=== PATIENT | female | born 1960 | race African-American/Black ===

== ENCOUNTER → 2017-01-21 | Outpatient (CLI) | payer OTHER ==
--- NOTE | 2017-01-21 19:31 | CONS ---
DATE OF CONSULTATION: 01/21/2017 This is a 56-year-old lady who has been evaluated in the sleep center for possible obstructive sleep apnea-hypopnea syndrome. HISTORY OF PRESENT ILLNESS/SLEEP-WAKE EVALUATION: Patient's usual sleep schedule is from around 8 or 9 p.m. until around 6:30 a.m. Sometimes she has problems falling asleep. She has a TV set in the bedroom. She sleeps usually on the side position. She snores, has episodes of stopped breathing during sleep. She wakes up from sleep up to 4 times. [place] Sleepiness Scale is 4. Past medical history is positive for: 1. End-stage kidney disease with history of being on dialysis and peritoneal dialysis and kidney transplant in March 2011. 2. Status post complication of peritoneal dialysis with infection in the belly. 3. Diabetes mellitus. 4. Hypertension. 5. Polyarthritis. 6. Anxiety. MEDICATIONS: 1. Cyclosporin. 2. ( ) 3. Aspirin. 4. Metoprolol. 5. Prednisone. 6. Metformin. 7. Vitamin D. 8. Xanax. SOCIAL HISTORY: Positive for smoking on and off for about 15 years; quit about 5 years ago. Alcohol consumption: none. REVIEW OF SYSTEMS: Multiple awakenings from sleep, snoring. No fevers. No double vision. No recent chest pain. No shortness of breath. No abdominal pain. No bleeding episodes. No blood in urine. No seizure episodes. FAMILY HISTORY: Hypertension, hyperlipidemia, arthritis, asthma, lung problems, sleep apnea, snoring, diabetes. PHYSICAL EXAMINATION: GENERAL: A pleasant 56-year-old -[place] lady without distress. VITAL SIGNS: BP 113/68, HR 74, RR 16. Height 5 feet 6 inches. Weight 265. BMI 42.6. Neck 15 inches in circumference. Temperature 98.0. HEENT: PERRLA, EOMI. Evaluation of oropharynx showed tongue protrudes midline; extremely low position of soft palate. NECK: Supple. No JVD. Thyroid is not palpable. LUNGS: Clear to percussion and to auscultation. Good air exchange. No wheezing or rhonchi. HEART: S1, S2 regular. No murmurs, gallops or rubs. ABDOMEN: Obese. Scars on the belly after the surgeries. EXTREMITIES: No clubbing or cyanosis. BIOSTATISTICIAN: Patient walks with a walker. IMPRESSION: 1. Snoring, episodes of stopped breathing during sleep, extremely low position of soft palate, multiple awakenings from sleep, up to 4 times; obstructive sleep apnea-hypopnea syndrome. 2. Obesity; body mass index of 42.6. 3. Arthritis, problem with right knee. 4. Hypertension. 5. Diabetes mellitus. 6. History of end-stage renal disease, status post treatment with dialysis and peritoneal dialysis, status post kidney transplant in 2010. 7. Anxiety. 8. Polyarthritis. PLAN: 1. Polysomnography for evaluation of patient's breathing during sleep. 2. CPAP/BiPAP titration if sleep study confirms obstructive sleep apnea-hypopnea syndrome. 3. Preferable position during sleep on the side. 4. No driving if patient feels any sleepiness. Patient is aware of civil and criminal liability for unsafe driving. 5. I will see patient for follow-up visit to explain results of the testing and following plan. Thank you very much for referring this patient for consultation. Sincerely, Lito Frias MD, PhD, FAASM. Diplomat of [place] [employer], Sleep Medicine Board by [place] [employer], [place] [employer]
== END ==
LOC: SLEEP 14:43
PROVIDERS: ATTEND Internal Medicine
DX: G47.33 Obstructive sleep apnea (adult) (pediatric) (principal); E66.9 Obesity, unspecified; M17.11 Unilateral primary osteoarthritis, right knee; E11.9 Type 2 diabetes mellitus without complications; F41.9 Anxiety disorder, unspecified; I10 Essential (primary) hypertension; Z68.41 Body mass index [BMI] 40.0-44.9, adult; Z79.82 Long term (current) use of aspirin; Z79.51 Long term (current) use of inhaled steroids; Z79.899 Other long term (current) drug therapy; Z87.891 Personal history of nicotine dependence
CPT/HCPCS: 99211

== ENCOUNTER → 2017-06-10 | Outpatient (CLI) | payer OTHER ==
--- NOTE | 2017-06-10 13:57 | PN ---
DATE OF SERVICE: 06/10/2017 A 57-year-old lady who has been followed in the Sleep Center for treatment of obstructive sleep apnea, hypopnea syndrome. I discussed the results of diagnostic sleep study and CPAP titration starting with the patient. The patient was started on treatment with CPAP about 2 months ago. Patient feels better in the morning when she is able to use her CPAP equipment at night , but she does not feel comfortable with the nasal mask which she has now. According to the patient, the mask which she used during the sleep test was different; it was smaller. I checked her CPAP unit and CPAP pressure is 8 cm of water around 45 minutes, usage is 8 out of 30 nights and more than 4 hours 5 out of 30 nights. Leak is borderline at 22 liters per minute. Apnea-hypopnea index only 0.2 which is totally normal. [place] sleepiness scale today is 8. MEDICATIONS: Metoprolol, prednisone, metformin, vitamin D, Xanax. During physical exam, the patient is in no distress. VITAL SIGNS: BP 119/76, HR 64, RR 16, weight 261, temp 98.2, oxygen saturation on room air 95%. HEENT: PERRLA, EOMI. Evaluation of oropharynx showed extremely low position of soft palate. NECK: Supple. No JVD. Thyroid is not palpable. LUNGS: clear to percussion and to auscultation. Good air exchange. No wheezing or rhonchi. HEART: S1, S2 regular. No murmurs, gallops or rubs. ABDOMEN: Obese. Soft and nontender. Bowel sounds are present. No organomegaly appreciated. EXTREMITIES: No cyanosis or clubbing. AEROPHYSICS ENGINEER: Awake, alert and oriented x3. Cranial nerves II through VII intact. There is no fasciculation or atrophy noted. No focal deficits observed. IMPRESSION: 1. Obstructive sleep apnea-hypopnea syndrome. Patient has difficulties to use CPAP equipment because of uncomfortable mask. The patient felt better after usage of CPAP on the following day. 2. Obesity. 3. Arthritis. 4. Hypertension. 5. Diabetes mellitus. 6. History of endstage renal disease, status post kidney transplant in 2010. 7. History of anxiety. PLAN: 1. We will try to fit the patient with different mask and I will write prescription to get different style of the mask. 2. Continue to use CPAP equipment every night for the whole night. Patient benefiting from treatment. 3. Losing weight. 4. Sleep hygiene with regular time in bed for at least 8 hours. 5. No driving if feeling any sleepiness. Thank you very much for allowing me to participate in the management of your patient. Sincerely, Vero Frias MD, PhD, FAASM Diplomat of [place] [employer], Sleep Medicine Board by [place] [employer] [place] [employer] [facility] [place] [facility]
== END ==
LOC: SLEEP 10:50
PROVIDERS: ATTEND Internal Medicine
DX: G47.33 Obstructive sleep apnea (adult) (pediatric) (principal); E66.9 Obesity, unspecified; I10 Essential (primary) hypertension; M19.90 Unspecified osteoarthritis, unspecified site; F41.9 Anxiety disorder, unspecified; Z79.899 Other long term (current) drug therapy

== ENCOUNTER → 2018-12-09 | Outpatient (CLI) | payer OTHER ==
[2018-12-09 08:56] LABS: HCT 45.6 % (34.0-46.0); HGB 13.2 gm/dL (11.4-16.0); Hypochromasia Marked; MCH 25.5 pg (25.0-35.0); MCHC 28.8 g/dL (31.0-37.0); MCV 88.5 fL (80.0-100.0); Mean Platelet Volume 7.4; Platelet Count 280 k/uL (150-450); RBC 5.16 m/uL (3.80-5.40); RDW 13.8 % (11.5-15.5); WBC 6.8 k/uL (3.8-10.6)
[2018-12-09 09:16] LABS: Appearance,Urine Clear (Clear); Bacteria,Urine Occasional /hpf; Bilirubin,Urine Negative (Negative); Blood,Urine Trace (Negative); Color,Urine Yellow; Glucose,Urine (UA) Negative (Negative); Ketones,Urine Negative (Negative); Leukocyte Esterase,Urine Trace (Negative); Mucus,Urine Rare /hpf; Nitrite,Urine Negative (Negative); PH, Urine 5.5 (5.0-8.0); Protein,Urine Negative (Negative); RBC,Urine 1 /hpf (0-5); Squamous Epithelial Cell,Urine 3 /hpf (0-4); Urobilinogen,Urine <2.0 mg/dL (<2.0); WBC,Urine 1 /hpf (0-5)
[2018-12-09 16:53] LABS: Albumin/Globulin Ratio 1.54 (1.60-3.17); Anion Gap 9.3 mmol/L (4.00-12.00); Calcium 9.6 mg/dL (8.7-10.3); Carbon Dioxide 25.7 mmol/L (21.6-31.8); Globulin 2.6 g/dL (1.6-3.3); Phosphorus 2.8 mg/dL (2.4-5.1); Potassium 4.4 mmol/L (3.5-5.5); Total Bilirubin 0.5 mg/dL (0.3-1.2); Total Protein 6.6 g/dL (6.2-8.2)
== END | disposition home or self-care (01) ==
LOC: LABWHC1 07:49
PROVIDERS: ATTEND Internal Medicine Nephrology
DX: D64.9 Anemia, unspecified (principal); N39.0 Urinary tract infection, site not specified; E83.39 Other disorders of phosphorus metabolism
CPT/HCPCS: 36415; 80053; 81001; 84100; 85027

== ENCOUNTER → 2019-02-14 | Outpatient (CLI) | payer OTHER ==
--- NOTE | 2019-02-14 16:12 | US ---
EXAMINATION TYPE: US kidneys/renal and bladder DATE OF EXAM: 02/14/2019 COMPARISON: NONE CLINICAL HISTORY: Z24.0 History of kidney transplant. Kidney transplant 2011 - RLQ EXAM MEASUREMENTS: [place] Right Kidney: unable to visualize [place] Left Kidney: ?? 7.8 x 3.2 x 3.8 cm [place] Right Kidney: unable to visualize [place] Left Kidney: possible left kidney visualized, limited evaluation due to overlying bowel conten t Bladder: appears wnl Bilateral Jets seen: no RLQ Transplanted Kidney: 10.5 x 3.9 x 5.2cm Urinary bladder is sonolucent. Posterior wall is normal. IMPRESSION: 1. Right lower quadrant transplant kidney appears unremarkable. Color flow sonography is present. No hydronephrosis is present.
== END ==
LOC: RADUSWWP 14:59
PROVIDERS: ATTEND Family Medicine
DX: Z48.22 Encounter for aftercare following kidney transplant (principal); Z94.0 Kidney transplant status
CPT/HCPCS: 76770

== ENCOUNTER → 2019-03-06 | Outpatient (CLI) | payer OTHER ==
--- NOTE | 2019-03-07 13:33 | MM ---
Reason for exam: screening (asymptomatic). Last mammogram was performed 1 year ago. History: Patient is postmenopausal and had first child at age 41. Physical Findings: A clinical breast exam by your physician is recommended on an annual basis and results should be correlated with mammographic findings. MG 3D Screening Mammo W/Cad Bilateral CC and MLO view(s) were taken. Prior study comparison: March 04, 2018, mammogram. March 04, 2017, mammogram. There are scattered fibroglandular densities. Finding: There is a typically benign new 3 mm equal density (isodense), round mass located 9 cm from the nipple. No significant changes in finding since March 04, 2018 and March 04, 2017. ASSESSMENT: Probably benign, BI-RAD 3 RECOMMENDATION: Follow-up diagnostic mammogram of the right breast in 6 months.
== END | disposition home or self-care (01) ==
LOC: RADMAMWWP 08:06
PROVIDERS: ATTEND Family Medicine
DX: Z12.31 Encounter for screening mammogram for malignant neoplasm of breast (principal)
CPT/HCPCS: 77063; 77067

== ENCOUNTER → 2019-03-24 | Outpatient (CLI) | payer OTHER | END | disposition home or self-care (01) | LOC: LABWHC1 07:45 | PROVIDERS: ATTEND Internal Medicine Nephrology | DX: Z94.0 Kidney transplant status (principal) | CPT/HCPCS: 36415; 80158 ==

== ENCOUNTER → 2019-08-14 | Outpatient (CLI) | payer OTHER ==
[2019-08-14 07:25] LABS: Basophils # (A) 0.1 k/uL (0-0.2); Basophils % (A) 1 %; Eosinophils # (A) 0.3 k/uL (0-0.7); Eosinophils % (A) 4 %; HCT 47.4 % (34.0-46.0); HGB 13.5 gm/dL (11.4-16.0); Hypochromasia Marked; Lymphocytes # (A) 1.9 k/uL (1.0-4.8); Lymphocytes % (A) 27 %; MCH 25.9 pg (25.0-35.0); MCHC 28.6 g/dL (31.0-37.0); MCV 90.8 fL (80.0-100.0); Mean Platelet Volume 7.1; Monocytes # (A) 0.4 k/uL (0-1.0); Monocytes % (A) 6 %; Neutrophils # (A) 4.3 k/uL (1.3-7.7); Neutrophils % (A) 61 %; Platelet Count 276 k/uL (150-450); RBC 5.22 m/uL (3.80-5.40); RDW 13.4 % (11.5-15.5); WBC 7.1 k/uL (3.8-10.6)
[2019-08-14 07:49] LABS: Appearance,Urine Cloudy (Clear); Bacteria,Urine Rare /hpf; Bilirubin,Urine Negative (Negative); Blood,Urine Negative (Negative); Color,Urine Yellow; Glucose,Urine (UA) Negative (Negative); Ketones,Urine Negative (Negative); Leukocyte Esterase,Urine Trace (Negative); Mucus,Urine Rare /hpf; Nitrite,Urine Negative (Negative); PH, Urine 5.5 (5.0-8.0); Protein,Urine Negative (Negative); RBC,Urine 2 /hpf (0-5); Specific Gravity,Urine 1.024 (1.001-1.035); Squamous Epithelial Cell,Urine 3 /hpf (0-4); Urobilinogen,Urine <2.0 mg/dL (<2.0); WBC,Urine 2 /hpf (0-5)
[2019-08-14 11:57] LABS: Iron Saturation 22.41 (12.00-45.00)
[2019-08-14 11:59] LABS: African American GFR (CKD) 47.9 (60.0-200.0); Albumin 4.2 g/dL (3.80-4.90); Anion Gap 11.4 mmol/L (4.00-12.00); BUN/Creat Ratio 28.57 Ratio (12.00-20.00); Calcium 9.7 mg/dL (8.7-10.3); Carbon Dioxide 27.6 mmol/L (21.6-31.8); Magnesium 1.7 mg/dL (1.5-2.4); Potassium 4.7 mmol/L (3.5-5.5); Uric Acid 8.4 mg/dL (2.9-7.7)
[2019-08-14 12:05] LABS: Vitamin D 25 Hydroxy 63.4 ng/mL (30.0-100.0)
[2019-08-14 12:07] LABS: Ferritin 172.7 ng/mL (10.0-291.0)
[2019-08-14 12:25] LABS: Creatinine,Urine Random 147.4 mg/dL; Total Protein,Urine Random 13.9 mg/dL (0.0-13.5)
== END | disposition home or self-care (01) ==
LOC: LABWHC1 06:41
PROVIDERS: ATTEND Internal Medicine Nephrology
DX: N39.0 Urinary tract infection, site not specified (principal); N25.81 Secondary hyperparathyroidism of renal origin; M10.9 Gout, unspecified; E55.9 Vitamin D deficiency, unspecified; D64.9 Anemia, unspecified; L70.8 Other acne; Z94.0 Kidney transplant status
CPT/HCPCS: 36415; 80048; 80158; 81001; 82040; 82306; 82570; 82728; 83540; 83550; 83735; 83970; 84100; 84156; 84550; 85025

== ENCOUNTER → 2019-09-13 | Outpatient (CLI) | payer OTHER ==
--- NOTE | 2019-09-13 07:53 | MM ---
Reason for exam: clinical finding. Last mammogram was performed 6 months ago. History: Patient is postmenopausal and had first child at age 41. Physical Findings: Nurse did not find any significant physical abnormalities on exam. MG 3D Diag Mammo W/Cad RT CC and MLO view(s) were taken of the right breast. Prior study comparison: March 06, 2019, bilateral MG 3d screening mammo w/cad. March 04, 2018, mammogram. There are scattered fibroglandular densities. There is a stable 2mm oval circumscribed lower outer quadrant anterior depth mas on the right back to 2018. No new suspicious abnormality. Benign appearing calcifications in the right breast. These results were verbally communicated with the patient and result sheet given to the patient on 09/13/19. ASSESSMENT: Probably benign, BI-RAD 3 RECOMMENDATION: Follow-up diagnostic mammogram of both breasts in 6 months.
== END | disposition home or self-care (01) ==
LOC: RADMAMWWP 06:51
PROVIDERS: ATTEND Family Medicine
DX: N63.10 Unspecified lump in the right breast, unspecified quadrant (principal)
CPT/HCPCS: 77065; G0279; 77061

== ENCOUNTER → 2019-09-19 | Outpatient (CLI) | payer OTHER ==
[2019-09-19 07:45] LABS: Basophils # (A) 0.1 k/uL (0-0.2); Basophils % (A) 1 %; Eosinophils # (A) 0.3 k/uL (0-0.7); Eosinophils % (A) 4 %; HCT 47.1 % (34.0-46.0); HGB 14.2 gm/dL (11.4-16.0); Hypochromasia Marked; Lymphocytes # (A) 2.2 k/uL (1.0-4.8); Lymphocytes % (A) 31 %; MCHC 30.2 g/dL (31.0-37.0); MCV 89.4 fL (80.0-100.0); Mean Platelet Volume 6.7; Monocytes # (A) 0.4 k/uL (0-1.0); Monocytes % (A) 6 %; Neutrophils % (A) 57 %; Platelet Count 271 k/uL (150-450); RBC 5.27 m/uL (3.80-5.40); RDW 13.4 % (11.5-15.5); WBC 7.1 k/uL (3.8-10.6)
[2019-09-19 07:52] LABS: Appearance,Urine Cloudy (Clear); Bacteria,Urine Few /hpf; Bilirubin,Urine Negative (Negative); Blood,Urine Trace (Negative); Color,Urine Yellow; Glucose,Urine (UA) Negative (Negative); Ketones,Urine Negative (Negative); Leukocyte Esterase,Urine Small (Negative); Mucus,Urine Occasional /hpf; Nitrite,Urine Negative (Negative); PH, Urine 5.5 (5.0-8.0); Protein,Urine Trace (Negative); RBC,Urine 2 /hpf (0-5); Specific Gravity,Urine 1.027 (1.001-1.035); Squamous Epithelial Cell,Urine 24 /hpf (0-4); Urobilinogen,Urine <2.0 mg/dL (<2.0); WBC,Urine 7 /hpf (0-5)
[2019-09-19 12:39] LABS: Ferritin 138.7 ng/mL (10.0-291.0)
[2019-09-19 12:43] LABS: % Iron Saturation 17.71 (12.00-45.00); African American GFR (CKD) 57.7 (60.0-200.0); Anion Gap 8.5 mmol/L (4.00-12.00); BUN/Creat Ratio 28.33 Ratio (12.00-20.00); Calcium 9.8 mg/dL (8.7-10.3); Carbon Dioxide 26.5 mmol/L (21.6-31.8); Magnesium 1.6 mg/dL (1.5-2.4); Phosphorus 3.2 mg/dL (2.4-5.1); Potassium 4.7 mmol/L (3.5-5.5)
[2019-09-19 13:03] LABS: Creatinine,Urine Random 162.2 mg/dL
[2019-09-19 13:04] LABS: Total Protein,Urine Random 25.4 mg/dL (0.0-13.5)
== END | disposition home or self-care (01) ==
LOC: LABWHC1 06:52
PROVIDERS: ATTEND Internal Medicine Nephrology
DX: E55.9 Vitamin D deficiency, unspecified (principal); N25.81 Secondary hyperparathyroidism of renal origin; M10.9 Gout, unspecified; D64.9 Anemia, unspecified; R80.9 Proteinuria, unspecified; Z94.0 Kidney transplant status
CPT/HCPCS: 36415; 80048; 80158; 81001; 82040; 82306; 82570; 82728; 83540; 83550; 83735; 83970; 84100; 84156; 84550; 85025

== ENCOUNTER → 2019-09-25 | Outpatient (CLI) | payer OTHER | END | disposition home or self-care (01) | LOC: LABWHC1 07:49 | PROVIDERS: ATTEND Internal Medicine Nephrology | DX: Z94.0 Kidney transplant status (principal) | CPT/HCPCS: 36415; 80158 ==

== ENCOUNTER → 2019-10-03 | Outpatient (CLI) | payer OTHER | END | disposition home or self-care (01) | LOC: LABWHC1 07:57 | PROVIDERS: ATTEND Internal Medicine Nephrology | DX: Z48.22 Encounter for aftercare following kidney transplant (principal); Z94.0 Kidney transplant status | CPT/HCPCS: 36415; 80158 ==

== ENCOUNTER 2019-10-04 18:55 | Inpatient (IN) | payer OTHER ==
[2019-10-04] MEDS ORDERED: SODIUM CHLORIDE 0.9% 1,000 ML IV STA (19:37)
[2019-10-04] MEDS ORDERED: IPRATROPIUM-ALBUTEROL 3 ML NEB INHALATION STA (19:37)
--- NOTE | 2019-10-04 19:40 | ED ---
SOB HPI - General Chief Complaint: Shortness of Breath Stated Complaint: SOB, cough Time Seen by Provider: 10/04/19 19:20 Source: patient, RN notes reviewed Mode of arrival: wheelchair Limitations: no limitations - History of Present Illness Initial Comments: This is a 51-year-old female with a history of sarcoidosis who presents with complaints of some cough and shortness of breath is been going on for about 5 days getting progressively worse with exertional dyspnea. She notes that her heart rate was elevated she denies any chest pain no fevers or other symptoms no overt chest pain no peripheral edema. No other modifying factors MD Complaint: shortness of breath - Related Data Allergies Allergy/AdvReac Type Severity Reaction Status Date / Time No Known Allergies Allergy Verified 10/04/19 19:12 Review of Systems ROS Statement: Those systems with pertinent positive or pertinent negative responses have been documented in the HPI. ROS Other: All systems not noted in ROS Statement are negative. Past Medical History Past Medical History: Diabetes Mellitus, Hyperlipidemia, Hypertension, Renal Disease Additional Past Medical History / Comment(s): sarcodosis History of Any Multi-Drug Resistant Organisms: None Reported Additional Past Surgical History / Comment(s): kidney transplant ,abd surgery after infection in abd from peritoneal dialysis Past Psychological History: No Psychological Hx Reported Smoking Status: Never smoker Past Alcohol Use History: None Reported Past Drug Use History: None Reported General Exam - General Exam Comments Initial Comments: This is a well-developed well-nourished awake alert oriented 3 female Limitations: no limitations General appearance: alert, anxious Head exam: Present: atraumatic, normocephalic, normal inspection Eye exam: Present: normal appearance, PERRL, EOMI. Absent: scleral icterus, conjunctival injection, periorbital swelling ENT exam: Present: mucous membranes dry Neck exam: Present: normal inspection, full ROM, other. Absent: tenderness, meningismus, lymphadenopathy Respiratory exam: Present: decreased breath sounds. Absent: respiratory distress, wheezes, rales, rhonchi, stridor Cardiovascular Exam: Present: normal rhythm, tachycardia, normal heart sounds. Absent: systolic murmur, diastolic murmur, rubs, gallop, clicks GI/Abdominal exam: Present: soft, normal bowel sounds. Absent: distended, tenderness, guarding, rebound, rigid Extremities exam: Present: normal inspection, full ROM, normal capillary refill. Absent: tenderness, pedal edema, joint swelling, calf tenderness Back exam: Present: normal inspection Neurological exam: Present: alert, oriented X3, CN II-XII intact Psychiatric exam: Present: normal affect, normal mood Skin exam: Present: warm, dry, intact, normal color. Absent: rash Course Vital Signs 10/04/19 10/04/19 10/04/19 19:08 20:12 20:21 Temperature 98.9 F Pulse Rate 118 H 122 H 122 H Respiratory 22 26 H Rate Blood Pressure 139/84 121/92 O2 Sat by Pulse 99 94 L Oximetry 10/04/19 10/04/19 21:00 22:00 Temperature Pulse Rate 118 H 118 H Respiratory 20 22 Rate Blood Pressure 120/88 121/90 O2 Sat by Pulse 97 98 Oximetry Medical Decision Making - Medical Decision Making The patient did not get much relief with the treatment was rendered thus far. The presentation is consistent with a pneumonitis/pneumonia patient does states she's been having chills no overt fevers. She does demonstrate sinus tachycardia she does demonstrate infiltrates. She is not been diagnosed with COPD though she is a former smoker who states she quit smoking 6 or 7 years ago. Due to the presentation she will be admitted to the hospital tonight the case with Glo Aparicio's nurse practitioner. Patient be seen by Dr. Aden who she is seen in the past. - Lab Data Result diagrams: 10/04/19 19:50 10/04/19 19:50 Lab Results 10/04/19 10/04/19 10/04/19 Range/Units 19:50 19:50 19:50 WBC 10.3 (3.8-10.6) k/uL RBC 5.53 H (3.80-5.40) m/uL Hgb 14.7 (11.4-16.0) gm/dL Hct 48.6 H (34.0-46.0) % MCV 87.9 (80.0-100.0) fL MCH 26.6 (25.0-35.0) pg MCHC 30.3 L (31.0-37.0) g/dL RDW 12.9 (11.5-15.5) % Plt Count 293 (150-450) k/uL Neutrophils % 72 % Lymphocytes % 17 % Monocytes % 6 % Eosinophils % 3 % Basophils % 1 % Neutrophils # 7.4 (1.3-7.7) k/uL Lymphocytes # 1.8 (1.0-4.8) k/uL Monocytes # 0.6 (0-1.0) k/uL Eosinophils # 0.3 (0-0.7) k/uL Basophils # 0.1 (0-0.2) k/uL Hypochromasia Marked PT 10.0 (9.0-12.0) sec INR 0.9 (<1.2) APTT 25.7 (22.0-30.0) sec D-Dimer 0.80 H (<0.60) mg/L FEU Sodium 136 L (137-145) mmol/L Potassium 5.1 (3.5-5.1) mmol/L Chloride 106 (98-107) mmol/L Carbon Dioxide 26 (22-30) mmol/L Anion Gap 4 mmol/L BUN 29 H (7-17) mg/dL Creatinine 1.17 H (0.52-1.04) mg/dL Est GFR (CKD-EPI)AfAm 59 (>60 ml/min/1.73 sqM) Est GFR (CKD-EPI)NonAf 52 (>60 ml/min/1.73 sqM) Glucose 186 H (74-99) mg/dL Calcium 9.8 (8.4-10.2) mg/dL Magnesium 1.9 (1.6-2.3) mg/dL Total Bilirubin 0.9 (0.2-1.3) mg/dL AST 25 (14-36) U/L ALT 9 (9-52) U/L Alkaline Phosphatase 84 (38-126) U/L Creatine Kinase 79 (30-135) U/L Troponin I (0.000-0.034) ng/mL NT-Pro-B Natriuret Pep pg/mL Total Protein 7.6 (6.3-8.2) g/dL Albumin 4.1 (3.5-5.0) g/dL 10/04/19 10/04/19 Range/Units 19:50 19:50 WBC (3.8-10.6) k/uL RBC (3.80-5.40) m/uL Hgb (11.4-16.0) gm/dL Hct (34.0-46.0) % MCV (80.0-100.0) fL MCH (25.0-35.0) pg MCHC (31.0-37.0) g/dL RDW (11.5-15.5) % Plt Count (150-450) k/uL Neutrophils % % Lymphocytes % % Monocytes % % Eosinophils % % Basophils % % Neutrophils # (1.3-7.7) k/uL Lymphocytes # (1.0-4.8) k/uL Monocytes # (0-1.0) k/uL Eosinophils # (0-0.7) k/uL Basophils # (0-0.2) k/uL Hypochromasia PT (9.0-12.0) sec INR (<1.2) APTT (22.0-30.0) sec D-Dimer (<0.60) mg/L FEU Sodium (137-145) mmol/L Potassium (3.5-5.1) mmol/L Chloride (98-107) mmol/L Carbon Dioxide (22-30) mmol/L Anion Gap mmol/L BUN (7-17) mg/dL Creatinine (0.52-1.04) mg/dL Est GFR (CKD-EPI)AfAm (>60 ml/min/1.73 sqM) Est GFR (CKD-EPI)NonAf (>60 ml/min/1.73 sqM) Glucose (74-99) mg/dL Calcium (8.4-10.2) mg/dL Magnesium (1.6-2.3) mg/dL Total Bilirubin (0.2-1.3) mg/dL AST (14-36) U/L ALT (9-52) U/L Alkaline Phosphatase (38-126) U/L Creatine Kinase (30-135) U/L Troponin I 0.014 (0.000-0.034) ng/mL NT-Pro-B Natriuret Pep 509 pg/mL Total Protein (6.3-8.2) g/dL Albumin (3.5-5.0) g/dL - EKG Data -: EKG Interpreted by Me EKG shows normal: sinus rhythm Rate: tachycardia EKG Comments: Sinus tachycardia rate 138. Interval 120 QRS duration 64 daily since QTC to 76/418 by atrial or from nonspecific ST configuration. - Radiology Data Radiology results: report reviewed (I did review the imaging and report is evidence of by lateral lower lobe infiltrates on a background of chronic lung disease.), image reviewed Disposition Clinical Impression: Community acquired bilateral lower lobe pneumonia, Acute bronchospasm, Sinus tachycardia Disposition: ADMITTED IP TO THIS HOSP Condition: Fair Referrals: Yuni Muller MD [Primary Care Provider] - 1-2 days
[2019-10-04 20:14] LABS: Basophils # (A) 0.1 k/uL (0-0.2); Basophils % (A) 1 %; Eosinophils # (A) 0.3 k/uL (0-0.7); Eosinophils % (A) 3 %; HCT 48.6 % (34.0-46.0); HGB 14.7 gm/dL (11.4-16.0); Hypochromasia Marked; Lymphocytes # (A) 1.8 k/uL (1.0-4.8); Lymphocytes % (A) 17 %; MCH 26.6 pg (25.0-35.0); MCHC 30.3 g/dL (31.0-37.0); MCV 87.9 fL (80.0-100.0); Mean Platelet Volume 6.6; Monocytes # (A) 0.6 k/uL (0-1.0); Monocytes % (A) 6 %; Neutrophils # (A) 7.4 k/uL (1.3-7.7); Neutrophils % (A) 72 %; Platelet Count 293 k/uL (150-450); RBC 5.53 m/uL (3.80-5.40); RDW 12.9 % (11.5-15.5); WBC 10.3 k/uL (3.8-10.6)
[2019-10-04 20:15] LABS: Albumin 4.1 g/dL (3.5-5.0); Calcium 9.8 mg/dL (8.4-10.2); Magnesium 1.9 mg/dL (1.6-2.3); Potassium 5.1 mmol/L (3.5-5.1); Total Bilirubin 0.9 mg/dL (0.2-1.3); Total Protein 7.6 g/dL (6.3-8.2)
[2019-10-04 20:22] LABS: INR 0.9 (<1.2); Partial Thromboplastin Time 25.7 sec (22.0-30.0)
--- NOTE | 2019-10-04 20:24 | XR ---
EXAMINATION TYPE: XR chest 2V DATE OF EXAM: 10/04/2019 COMPARISON: NONE HISTORY: Shortness of breath and cough. TECHNIQUE: Frontal and lateral views of the chest are obtained. FINDINGS: There is no elevated left hemidiaphragm. Bilateral alveolar and interstitial opacities tho ught present. No pleural effusion or pneumothorax is seen bilaterally. The cardiac silhouette size is within normal limits. Patient rotated to right on current study. Multilevel spurring in the spine is present. Cholecystectomy clips noted on lateral view. IMPRESSION: Diffuse bilateral alveolar and interstitial edema and/or infiltrates may be present. Can not exclude underlying bilateral pulmonary parenchymal fibrosis. Correlation with old outside x-ray w ould be beneficial.
[2019-10-04 20:27] LABS: D-Dimer 0.8 mg/L FEU (<0.60)
--- NOTE | 2019-10-04 22:00 | CT ---
EXAMINATION TYPE: CT angio chest DATE OF EXAM: 10/04/2019 COMPARISON: Chest x-ray earlier today. HISTORY: shortness of breath CT DLP: 619.9 mGycm. Automated Exposure Control for Dose Reduction was Utilized. CONTRAST: CTA scan of the thorax is performed with IV Contrast, patient injected with 65 mL of Isovue 370, pulm onary embolism protocol. MIP Images are created on CT scanner and reviewed. FINDINGS: LUNGS: Elevated left hemidiaphragm. Eventration of right hemidiaphragm. Some background chronic paren chymal fibrotic changes and scattered blebs bilaterally. Multifocal areas of groundglass opacity bila terally involving upper and lower lungs. No pleural effusion or pneumothorax. MEDIASTINUM: There is satisfactory enhancement of the pulmonary artery and its branches, there is no CT evidence for pulmonary embolism. There are no greater than 1 cm hilar or mediastinal lymph nodes. No cardiomegaly or pericardial effusion is seen. Enlarged pulmonary arteries, CT findings consiste nt with underlying pulmonary artery hypertension. OTHER: There is marked eventration in the anterior abdominal wall without definitive hernia defect. T his contains fat and mesenteric vessels as well as small and large bowel loops. Cholecystectomy clips are present. Moderate multilevel spurring in the thoracic spine. IMPRESSION: 1. No CT evidence for acute pulmonary embolism. 2. As suspected on chest x-ray there is moderate alveolar and interstitial edema and/or infiltrates b ilaterally on background of moderate chronic parenchymal fibrotic changes.
[2019-10-04] MEDS ORDERED: cefTRIAXone IN SWFI 1,000 MG/10 ML SYRINGE IVP STA (23:02)
[2019-10-04] MEDS ORDERED: AZITHROMYCIN 500 MG in SODIUM CHLORIDE 0.9% 250 ML IVPB STA (23:08)
[2019-10-04] MEDS ORDERED: PNEUMONIA PROTOCOL UTILIZED 1 EACH MISC PO PRN (23:08)
[2019-10-04] MEDS ORDERED: ONDANSETRON 4 MG/2 ML VIAL IVP STA (23:18)
[2019-10-05] MEDS: SODIUM CHLORIDE 0.9% 1,000 ML IV SCH ×3 (00:47→15:14)
[2019-10-05] MEDS: methylPREDNISolone SOD SUCCI 125 MG/2 ML VIAL IV SCH ×2 (00:52→07:33)
[2019-10-05] MEDS: IPRATROPIUM-ALBUTEROL 3 ML NEB INHALATION SCH ×6 (01:28→20:43)
[2019-10-05] MEDS: ACETAMINOPHEN TAB 325 MG TAB PO PRN ×3 (05:46→23:24)
[2019-10-05 07:21] LABS: Glucose,Whole Blood 286 mg/dL (75-99)
[2019-10-05] MEDS: INSULIN ASPART (NovoLOG) 100 UNIT/ML VIAL SQ SCH ×4 (07:33→21:05)
--- NOTE | 2019-10-05 07:55 | XR ---
EXAMINATION TYPE: XR chest 2V DATE OF EXAM: 10/05/2019 COMPARISON: 10/04/2019 HISTORY: Shortness of breath. Pneumonia. TECHNIQUE: Frontal and lateral views of the chest are obtained. FINDINGS: Similar diffuse interstitial prominence and few patchy areas of alveolar airspace disease. Diffuse reticular opacity. Cardiomediastinal silhouette is stable. Slight eventration of the right h emidiaphragm. No pneumothorax or pleural effusion. Moderate degenerative changes of the spine. IMPRESSION: Stable interstitial pattern with a few patchy alveolar opacities. Given the recent CT fi ndings appear to represent a combination of pulmonary fibrosis, fluid overload, and pneumonia.
[2019-10-05] MEDS ORDERED: HYDROcodone/APAP 5-325MG 1 EACH TAB PO PRN (10:12)
[2019-10-05 10:27] LABS: Calcium 9.2 mg/dL (8.4-10.2); Potassium 5.2 mmol/L (3.5-5.1)
[2019-10-05] MEDS: METOPROLOL SUCCINATE (ER) 25 MG TAB.ER.24H PO SCH (10:46)
[2019-10-05 11:58] LABS: Glucose,Whole Blood 366 mg/dL (75-99)
[2019-10-05] MEDS: HEPARIN SODIUM,PORCINE 5,000 UNIT/ML 1 ML VIAL SQ SCH ×2 (12:27→21:05)
[2019-10-05] MEDS: FAMOTIDINE 20 MG TAB PO SCH ×2 (12:27→21:05)
--- NOTE | 2019-10-05 14:51 | P.HPIM ---
History of Present Illness 59-year-old pleasant female came in with comments of shortness of breath going on for couple days. Patient denied any fever chills patient does have dry cough. Patient does have history of sarcoidosis supposed to use oxygen but maier sn't use it to only use it on as-needed basis. Patient is presently on 3 L, without rales and patient desaturated to 70% pulse ox. Patient the for last 34 days does have symptoms of body aches URI-like symptoms. Never had any fever. Patient had a CAT scan of the chest which is reviewed by me looks like patient has significant interstitial lung disease from sarcoidosis. Doesn't have any lobar infiltrate. Patient is in any fever patient the clinical symptomology is not consistent with pneumonia patient will not benefit from antibiotics Rocephin will be discontinued patient may not even need azithromycin. Patient is started was started on steroids which will be continued as patient is hypoxic and keep her here today if we're able to get down the oxygen to 2 L at less patient probably can be discharged at that time. Pulmonology was consulted. There is no evidence of heart failure patient doesn't have any orthopnea proximal nocturnal dyspnea, doesn't have any elevated JVD BNP is only 500 although echo cardiac Be obtained. Patient appears to have some chronic kidney disease but will hydrate her for a day and recheck the creatinine, patient baseline creatinine appears to be around 1.2. Patient is feeling much better today compared to last 2 days Review of Systems REVIEW OF SYSTEMS: CONSTITUTIONAL: No fever, no malaise, no fatigue. HEENT: No recent visual problems or hearing problems. Denied any sore throat. CARDIOVASCULAR: No chest pain, orthopnea, PND, no palpitations, no syncope. PULMONARY: no hemoptysis. GASTROINTESTINAL: No diarrhea, no nausea, no vomiting, no abdominal pain. NEUROLOGICAL: No headaches, no weakness, no numbness. HEMATOLOGICAL: Denies any bleeding or petechiae. GENITOURINARY: Denies any burning micturition, frequency, or urgency. MUSCULOSKELETAL/RHEUMATOLOGICAL: Denies any joint pain, swelling, or any muscle pain. ENDOCRINE: Denies any polyuria or polydipsia. The rest of the 14-point review of systems is negative. Past Medical History Past Medical History: Diabetes Mellitus, Hyperlipidemia, Hypertension, Renal Disease Additional Past Medical History / Comment(s): sarcodosis History of Any Multi-Drug Resistant Organisms: None Reported Additional Past Surgical History / Comment(s): kidney transplant ,abd surgery after infection in abd from peritoneal dialysis Past Anesthesia/Blood Transfusion Reactions: Unable to Obtain Past Psychological History: No Psychological Hx Reported Smoking Status: Never smoker Past Alcohol Use History: None Reported Past Drug Use History: None Reported Medications and Allergies Home Medications Medication Instructions Recorded Confirmed Type Bisacodyl [Dulcolax] 5 mg PO Q48H 10/04/19 10/04/19 History Ergocalciferol [Vitamin D2] 50,000 unit PO TU 10/04/19 10/04/19 History HYDROcodone/APAP 5-325MG [[place] 1 tab PO Q8H PRN 10/04/19 10/04/19 History 5-325] Spironolactone [Aldactone] 50 mg PO DAILY 10/04/19 10/04/19 History predniSONE 5 mg PO DAILY 10/04/19 10/04/19 History Allopurinol [Zyloprim] 200 mg PO DAILY 10/05/19 10/05/19 History Aspirin EC [Ecotrin Low Dose] 81 mg PO DAILY 10/05/19 10/05/19 History Cyclosporine, Modified [Gengraf] 100 mg PO Q12H 10/05/19 10/05/19 History Docusate [Colace] 100 mg PO DAILY 10/05/19 10/05/19 History Metoprolol Succinate [Toprol XL] 25 mg PO DAILY 10/05/19 10/05/19 History Mycophenolate Mofetil [Cellcept] 1,000 mg PO BID 10/05/19 10/05/19 History metFORMIN HCL [Glucophage] 500 mg PO BID 10/05/19 10/05/19 History Allergies Allergy/AdvReac Type Severity Reaction Status Date / Time No Known Allergies Allergy Verified 10/04/19 19:12 Physical Exam Vitals: Vital Signs Temp Pulse Pulse Resp BP BP Pulse Ox 10/05/19 12:22 124 H 10/05/19 12:06 126 H 10/05/19 09:37 132 H 10/05/19 09:28 136 H 10/05/19 08:45 12 10/05/19 07:00 98.4 F 110 H 12 100/68 94 L 10/05/19 03:55 114 H 10/05/19 03:43 114 H 10/05/19 01:40 118 H 10/05/19 01:28 117 H 10/05/19 00:30 121 H 18 10/05/19 00:19 99.4 F 131 H 15 103/78 92 L 10/04/19 23:30 118 H 20 121/92 97 10/04/19 22:00 118 H 22 121/90 98 10/04/19 21:00 118 H 20 120/88 97 10/04/19 20:21 122 H 10/04/19 20:12 122 H 26 H 121/92 94 L 10/04/19 19:08 98.9 F 118 H 22 139/84 99 Intake and Output 10/04/19 10/05/19 10/05/19 22:59 06:59 14:59 Intake Total 1525 Balance 1525 Intake: Intake, IV Titration 325 Amount Sodium Chloride 0.9% 1, 325 000 ml @ 75 mls/hr IV . [id number] STA Rx#:[id number] Oral 1200 Other: # Voids 1 Weight 118.841 kg 118.841 kg PHYSICAL EXAMINATION: GENERAL: The patient is alert and oriented x3, not in any acute distress. Well developed, well nourished. HEENT: Pupils are round and equally reacting to light. EOMI. No scleral icterus. No conjunctival pallor. Normocephalic, atraumatic. No pharyngeal erythema. No thyromegaly. CARDIOVASCULAR: S1 and S2 present. No murmurs, rubs, or gallops. PULMONARY: Chest is clear to auscultation, no wheezing or crackles. ABDOMEN: Soft, nontender, nondistended, normoactive bowel sounds. No palpable organomegaly. MUSCULOSKELETAL: No joint swelling or deformity. EXTREMITIES: No cyanosis, clubbing, or pedal edema. NEUROLOGICAL: Gross neurological examination did not reveal any focal deficits. SKIN: No rashes. Results CBC & Chem 7: 10/04/19 19:50 10/05/19 07:14 Labs: Abnormal Lab Results - Last 24 Hours (Table) 10/04/19 10/04/19 10/04/19 Range/Units 19:50 19:50 19:50 RBC 5.53 H (3.80-5.40) m/uL Hct 48.6 H (34.0-46.0) % MCHC 30.3 L (31.0-37.0) g/dL D-Dimer 0.80 H (<0.60) mg/L FEU Sodium 136 L (137-145) mmol/L Potassium (3.5-5.1) mmol/L BUN 29 H (7-17) mg/dL Creatinine 1.17 H (0.52-1.04) mg/dL Glucose 186 H (74-99) mg/dL POC Glucose (mg/dL) (75-99) mg/dL 10/05/19 10/05/19 10/05/19 Range/Units 07:14 07:20 11:57 RBC (3.80-5.40) m/uL Hct (34.0-46.0) % MCHC (31.0-37.0) g/dL D-Dimer (<0.60) mg/L FEU Sodium (137-145) mmol/L Potassium 5.2 H (3.5-5.1) mmol/L BUN 26 H (7-17) mg/dL Creatinine 1.19 H (0.52-1.04) mg/dL Glucose 305 H (74-99) mg/dL POC Glucose (mg/dL) 286 H 366 H (75-99) mg/dL Thrombosis Risk Factor Assmnt - Choose All That Apply Each Factor Represents 1 point: Age 41-60 years, Obesity (BMI >25), Serious lung disease incl. pneumonia (< 1month) Other congenital or acquired thrombophilia - If yes, enter type in comment: No Thrombosis Risk Factor Assessment Total Risk Factor Score: 3 Thrombosis Risk Factor Assessment Level: Moderate Risk Assessment and Plan Plan: -Shortness of breath, acute hypoxic respiratory failure: Probably secondary to flareup of sarcoidosis which is again precipitated by recent viral upper respiratory infection. Continue systemic steroids blood sugars are expected to go high will treat with as needed sliding scale insulin. -Sinus tachycardia: Secondary to hypoxemia and the reflex tachycardia from holding off on metoprolol which will be resumed today. -Type 2 diabetes mellitus: Patient will be started on sliding scale insulin patient blood sugars are expected to be high patient blood sugars are presently uncontrolled and elevated secondary to systemic steroids. Metformin will be held -Possible diabetic nephropathy with the stage II chronic kidney disease -Interstitial lung disease from sarcoidosis -Mild hyperkalemia expected to improve with IV fluids repeat basic metabolic profile tomorrow -Hypertension -Hyperlipidemia DVT prophylaxis early ambulation
--- NOTE | 2019-10-05 15:31 | CONS ---
CONSULTATION DATE OF SERVICE: 10/05/2019 HISTORY OF PRESENT ILLNESS: Patient is a 59-year-old female with a history of sarcoidosis, has not been seen in the pulmonary office in over a year. Patient states that she started coughing with worsening shortness of breath that lasted for a few days. No fever. Had some chills in the recent past with patient's history of breathing issues, patient came to the emergency room and was told that she had pneumonia and was admitted for further evaluation and treatment. PAST MEDICAL HISTORY: Significant for sarcoidosis, diabetes mellitus, hyperlipidemia, hypertension and renal disease, obstructive sleep apnea. PAST SURGICAL HISTORY: Significant for kidney transplant and abdominal surgery related to an infection after patient had been on peritoneal dialysis. ALLERGIES: No known allergies to medications. HOME MEDICATIONS: Include Toprol-XL 25 mg p.o. daily. Gengraf 100 mg p.o. q.12 hours, Glucophage 500 mg p.o. b.i.d., CellCept 1000 mg p.o. b.i.d., Colace 100 mg p.o. daily, Ecotrin 81 mg p.o. daily, Zyloprim 200 mg p.o. daily, Prednisone 5 mg p.o. daily, Aldactone 50 mg p.o. daily, [place] 1 tab p.o. q.8 hours p.r.n., vitamin D2 fifty thousand units p.o. on Wednesday and Dulcolax 5 mg p.o. q.48 hours. SOCIAL HISTORY: Patient does have a remote history of smoking, quit a little more than 11 years ago and smokes socially, not on a daily basis. Patient denies any alcohol intake. Denies any illicit drug use. Does not work, is disabled and has no pets in the home. FAMILY HISTORY: Mother at 64 with a history of rheumatoid arthritis and hypertension. Father at the age of 59. He had been shot in a robbery. REVIEW OF SYSTEMS: General is negative for any fever. The patient verbalized a good appetite. Weight is stable. HEENT: Positive for a tension headache, although that has resolved with Tylenol. Denies any acute visual changes. Denies any difficulty hearing. Does have questionable seasonal allergies. Denies any rhinitis. Denies any nose bleeds. Denies any sore throat or difficulty swallowing. RESPIRATORY: Positive for worsening shortness of breath with a nonproductive cough. CARDIOVASCULAR: Negative for chest pain or palpitations. GI: Negative for abdominal pain, nausea, or vomiting. Does have problem with constipation for which patient takes stool softeners or laxatives. : Negative for any dysuria or hematuria. ENDOCRINE: Positive for diabetes mellitus, controlled on oral medications. No thyroid disease. MUSCULOSKELETAL: Positive for arthritis. NEUROLOGIC: Negative for any history of seizures or neuropathy. PSYCHIATRIC: Positive for depression. PHYSICAL EXAM: GENERAL: She is a pleasant 59-year-old female seen sitting up in a chair, awake, alert, hemodynamically stable, afebrile, in no acute distress. VITAL SIGNS: Temperature is 98.4, heart rate 110, respiratory rate 12, blood pressure is 100/68, O2 saturations 94% on 3 L O2 via nasal cannula. HEENT. Head is normocephalic, atraumatic. Pupils equal, round, react to light. Ears, nose no discharge is noted. Mouth with moist mucous membranes. Mallampati is a class 4. NECK: Short, thick, supple. Trachea is midline. LUNGS: With decreased breath sounds. No clear rales or wheezes heart S1, S2 are heard. Tachycardic. ABDOMEN: Soft, obese. Bowel sounds are positive. EXTREMITIES: With no edema. NEUROLOGIC: Patient is awake, alert, oriented. LABS: White count is 10.3, hemoglobin is 14.7, hematocrit is 48.6 with 293,000 platelets. PT is 10, INR is 0.9, PTT is 25.7, D-dimer is 0.80, sodium is 139, potassium is 5.2, chloride is 105, CO2 is 22, anion gap is 12, BUN is 26, creatinine 1.19, glucose is 305, calcium is 9.2, magnesium is 1.9, total bilirubin 0.9, AST 25, ALT 9, alkaline phosphatase 84, CK 79, troponin 0.014. BNP is 509. Total protein 7.6, albumin is 4.1. IMAGING: Chest x-ray done on admission shows diffuse bilateral alveolar and interstitial edema and/or infiltrates may be present. Cannot exclude underlying bilateral pulmonary parenchymal fibrosis. Correlation with outside x-ray would be beneficial. Repeat x- ray this morning shows a stable interstitial pattern with a few patchy alveolar opacities. Given the recent CT findings appear to represent a combination of pulmonary fibrosis, fluid overload and pneumonia. CTA of the chest impression, no CT evidence for acute pulmonary embolism as suspected on chest x-ray. There is moderate alveolar interstitial edema and/or infiltrates bilaterally. A background of moderate chronic parenchymal fibrotic changes. IMPRESSION: 1. Acute bronchospasms. 2. Interstitial lung disease. 3. Possible lower lobe pneumonia. 4. Sinus tachycardia. 5. History of sarcoidosis. 6. History of kidney transplant. 7. History of obstructive sleep apnea, untreated. Patient does not wear CPAP. 8. Hyperkalemia. 9. Diabetes mellitus. PLAN: Continue bronchodilators. Will add aerosolized steroids. Continue IV Solu-Medrol 60 mg IV q.6 hours. Will add pulmonary hygiene. Recommend holding Aldactone as patient is hyperkalemic. Add Pepcid for GI prophylaxis and heparin subcu for DVT prophylaxis, insulin for hyperglycemia. Thank you for the consultation. We will follow patient closely with you making further changes as necessary. MMODL / IJN: [id number] /
[2019-10-05] MEDS: methylPREDNISolone SOD SUCCI 40 MG/ML 1 ML VIAL IV SCH ×2 (15:35→23:24)
[2019-10-05 17:03] LABS: Glucose,Whole Blood 304 mg/dL (75-99)
[2019-10-05 20:27] LABS: Glucose,Whole Blood 326 mg/dL (75-99)
[2019-10-05] MEDS: BUDESONIDE 0.5 MG/2 ML NEBU INHALATION SCH (20:43)
[2019-10-05] MEDS: MYCOPHENOLATE MOFETIL 250 MG CAP PO SCH (21:06)
[2019-10-05] MEDS ORDERED: AZITHROMYCIN 500 MG TAB PO SCH (23:09)
[2019-10-06] MEDS: IPRATROPIUM-ALBUTEROL 3 ML NEB INHALATION SCH ×5 (00:27→16:49)
[2019-10-06] MEDS: SODIUM CHLORIDE 0.9% 1,000 ML IV SCH ×2 (03:45→12:31)
[2019-10-06 07:03] LABS: Glucose,Whole Blood 236 mg/dL (75-99)
[2019-10-06] MEDS: INSULIN ASPART (NovoLOG) 100 UNIT/ML VIAL SQ SCH ×2 (07:11→12:29)
[2019-10-06] MEDS: methylPREDNISolone SOD SUCCI 40 MG/ML 1 ML VIAL IV SCH (07:11)
[2019-10-06] MEDS: HEPARIN SODIUM,PORCINE 5,000 UNIT/ML 1 ML VIAL SQ SCH (07:12)
[2019-10-06] MEDS: METOPROLOL SUCCINATE (ER) 25 MG TAB.ER.24H PO SCH (07:12)
[2019-10-06] MEDS: FAMOTIDINE 20 MG TAB PO SCH (07:12)
[2019-10-06] MEDS: MYCOPHENOLATE MOFETIL 250 MG CAP PO SCH (07:18)
[2019-10-06 07:40] LABS: Potassium 5.7 mmol/L (3.5-5.1)
[2019-10-06 08:04] VITALS: RESP 16
--- NOTE | 2019-10-06 08:16 | ECHOF ---
Referral Reason:CHF MEASUREMENTS -------- HEIGHT: 170.2 cm WEIGHT: 118.8 kg BP: 100/68 RVIDd: 3.5 cm (< 3.3) IVSd: 1.2 cm (0.6 - 1.1) LVIDd: 3.1 cm (3.9 - 5.3) LVPWd: 1.2 cm (0.6 - 1.1) IVSs: 1.6 cm LVIDs: 2.6 cm LVPWs: 1.5 cm LA Diam: 2.7 cm (2.7 - 3.8) LAESV Index (A-L): 12.48 ml/m Ao Diam: 3.1 cm (2.0 - 3.7) MV EXCURSION: 18.547 mm (> 18.000) MV EF SLOPE: 123 mm/s (70 - 150) EPSS: 0.4 cm MV E Jean Marie: 0.87 m/s MV DecT: 125 ms MV A Jean Marie: 1.47 m/s MV E/A Ratio: 0.59 AV maxP.66 mmHg AV meanP.37 mmHg RAP: 5.00 mmHg RVSP: 64.92 mmHg TAPSE: 17.70 mm FINDINGS -------- Resting tachycardia (HR>100bpm). This was a technically adequate study. The left ventricular size is normal. There is mild concentric left ventricular hypertrophy. Left ventricular systolic function is hyperdynamic with an estimated EF of >70%. The right ventricle is mildly enlarged. Normal LA size by volume 22+/-6 ml/m2. The right atrium is normal in size. Possible PFO Aortic valve is trileaflet and is mildly thickened. Peak/mean gradient across the Aortic Valve is 1 7.66mmHg / 9.37mmHg. Mild mitral annular calcification present. There is trace mitral regurgitation. Mild tricuspid regurgitation present. There is severe pulmonary hypertension. The right ventricul ar systolic pressure, as measured by Doppler, is 64.92mmHg. The pulmonic valve was not well visualized. The aortic root size is normal. Normal inferior vena cava with normal inspiratory collapse consistent with estimated right atrial pre ssure of 5 mmHg. There is no pericardial effusion. CONCLUSIONS -------- 1. Resting tachycardia (HR>100bpm). 2. This was a technically adequate study. 3. The left ventricular size is normal. 4. There is mild concentric left ventricular hypertrophy. 5. Left ventricular systolic function is hyperdynamic with an estimated EF of >70%. 6. The right ventricle is mildly enlarged. 7. Normal LA size by volume 22+/-6 ml/m2. 8. The right atrium is normal in size. 9. Possible PFO 10. Aortic valve is trileaflet and is mildly thickened. 11. Peak/mean gradient across the Aortic Valve is 17.66mmHg / 9.37mmHg. 12. Mild mitral annular calcification present. 13. There is trace mitral regurgitation. 14. Mild tricuspid regurgitation present. 15. There is severe pulmonary hypertension. 16. The right ventricular systolic pressure, as measured by Doppler, is 64.92mmHg. 17. The pulmonic valve was not well visualized. 18. The aortic root size is normal. 19. Normal inferior vena cava with normal inspiratory collapse consistent with estimated right atrial pressure of 5 mmHg. 20. There is no pericardial effusion. SUBMARINE WORKER: Jacqui Candelaria RDCS
[2019-10-06] MEDS: BUDESONIDE 0.5 MG/2 ML NEBU INHALATION SCH (08:58)
[2019-10-06] MEDS ORDERED: BISACODYL 5 MG TABLET.DR PO SCH (09:00)
[2019-10-06] MEDS ORDERED: predniSONE 20 MG TAB PO SCH (09:00)
[2019-10-06] MEDS ORDERED: ALLOPURINOL 100 MG TAB PO SCH (09:00)
[2019-10-06] MEDS ORDERED: ASPIRIN 81 MG PO SCH (09:00)
[2019-10-06] MEDS ORDERED: DOCUSATE 100 MG CAP PO SCH (09:00)
--- NOTE | 2019-10-06 11:53 | PN ---
PROGRESS NOTE DATE OF SERVICE: 10/06/2019 Patient is a 59-year-old female who is seen sitting up in a chair, just getting ready for breakfast. States that she is feeling much better today. Patient is afebrile, hemodynamically stable, in no acute distress. PHYSICAL EXAM: VITAL SIGNS: Temperature 97.6, heart rate 98, respiratory rate is 16, blood pressure is 118/81, O2 saturations are 93% on room air. HEENT. Head is normocephalic, atraumatic. NECK: Supple. Trachea is midline. LUNGS: With decreased breath sounds. No rales or wheezes. HEART: S1, S2 are heard. Not tachycardic. ABDOMEN: Soft. Bowel sounds are positive. EXTREMITIES: With trace edema. NEUROLOGIC: Patient is awake and alert. LABS: Sodium is 139, potassium is 5.7, chloride is 108, CO2 is 22, anion gap is 9, BUN is 41, creatinine is 1.43, glucose is 251, calcium is 10. No new imaging to review. IMPRESSION: 1. Acute exacerbation of sarcoidosis. 2. Sinus tachycardia, which has improved. 3. History of kidney transplant. 4. Hyperkalemia. 5. Obstructive sleep apnea, untreated. 6. Diabetes mellitus, uncontrolled. PLAN: Will consult Nephrology for hyperkalemia as patient has had history of kidney transplant. Continue bronchodilators and aerosol steroids. Will stop IV steroids and change to oral prednisone at 60 mg daily and recommend that patient be maintained on 60 mg daily until seen in the Pulmonary office 3-4 days after discharge. Continue incentive spirometry with pulmonary hygiene. Continue GI and DVT prophylaxis. Continue insulin for diabetes mellitus and will follow patient closely with you making further changes as necessary. MMODL / IJN: [id number] /
[2019-10-06 11:55] LABS: Glucose,Whole Blood 238 mg/dL (75-99)
[2019-10-06 14:19] VITALS: BP 125/79; TEMP 98.2
[2019-10-06 16:55] LABS: Glucose,Whole Blood 259 mg/dL (75-99)
[2019-10-06 17:01] VITALS: PULSE 94
--- NOTE | 2019-10-06 21:15 | CONS ---
CONSULTATION . REASON FOR CONSULT: Posttransplant care. HISTORY OF PRESENT ILLNESS: Patient is a 59-year-old female with history of donor transplant at [facility] in 2010 with baseline creatinine around 1.1-1.2 mg/dL. The patient was admitted to the hospital with complaints of shortness of breath. She believes her symptoms started after she was started on allopurinol. CT of the chest was done to rule out PE and this was negative. The patient does have a history of sarcoidosis and her serum calcium has not been elevated this admission. According to the patient, there was concern regarding relapse of the sarcoidosis on this admission along with an element of congestive heart failure. The patient has been maintained on steroids. She has also been diuresed and she states she is feeling much better now. Lasix is now discontinued. Creatinine is noted to be 1.4 today from 1.1 yesterday. Chest x-ray from yesterday showed patchy alveolar opacities with concern for possible interstitial edema versus pulmonary fibrosis. No complaints of fever. Cough is improved. No nausea, vomiting, diarrhea. Patient's cyclosporine level was elevated as outpatient up to 173. Her cyclosporine dose was decreased and her most recent level on 10/03/2019 was 147. Her potassium is slightly on the higher side. Currently patient is maintained on 100 mg q.12 hours cyclosporine. PAST MEDICAL HISTORY: End-stage renal disease, status post donor kidney transplant, sarcoidosis, type 2 diabetes, hyperlipidemia, hypertension, obstructive sleep apnea. PAST SURGICAL HISTORY: Renal transplant, abdominal surgery, PD catheter placement and removal ALLERGIES: None. MEDICATIONS: Medications at home prior to admission included Toprol, Gengraf, Glucophage, CellCept, Colace, aspirin, Zyloprim, prednisone, Aldactone vitamin D2, Dulcolax, [place], and allopurinol. REVIEW OF SYSTEMS: As per HPI. Other systems negative. EXAMINATION: Patient is currently comfortable, awake, not in any acute distress. Blood pressure is 125/79, heart rate 94 per minute, patient is afebrile. Examination of the heart S1, S2. Examination of the lungs, bilateral breath sounds are heard. ABDOMEN: Soft, nontender. Examination of lower extremities shows no evidence of edema. SLEDGER exam grossly intact. LAB: Show sodium 139, potassium 5.7, chloride 108, CO2 is 22, BUN 41, creatinine 1.43, calcium 10.0. ASSESSMENT: 1. Acute kidney injury associated with recent diuresis. No nephrotoxic agents on board. Cyclosporine level had been high as outpatient. The medication has been decreased and the last level was 147, which is still slightly on the high, last level was 147 on 10/03/2019 as outpatient prior to admission. I will recheck another level tomorrow morning and will adjust her cyclosporine accordingly. Continue off IV fluids. Continue off diuretics for now. 2. Status post donor transplant. Baseline creatinine around 1.1 mg/dL, 1.1- 1.2 mg/dL, maintained on cyclosporine and CellCept as outpatient. 3. Dyspnea, possibly related to congestive heart failure versus sarcoidosis. Serum calcium has was not elevated this admission. I do not see an [place] level from this admission. The patient is being followed by pulmonology. 4. Chronic kidney disease mineral bone disorder with PTH of 102.8 on 09/19/2019 with adequate vitamin D levels. 5. Type 2 diabetes, maintained on Glucophage. 6. Hypertension currently controlled. PLAN: Repeat cyclosporine level in a.m. consider decreasing dose further. Avoid high potassium foods. Control blood sugars as this will also potentiate the hyperkalemia. Possible discharge tomorrow. Follow up as outpatient. Thank you for this consultation. We will continue to follow the patient with you during her hospitalization. MMODL / IJN: [id number] /
[2019-10-07] MEDS ORDERED: FAMOTIDINE 20 MG TAB PO SCH (09:00)
--- NOTE | 2019-10-30 00:58 | P.DS ---
Providers Date of admission: 10/04/19 23:08 Expected date of discharge: 10/06/19 Attending physician: Can Aparicio Consults: 10/04/19 23:08 Consult Physician Routine Consulting Provider: Noel Aden Consult Reason/Comments: Pneumonia, bronchospasm Do you want consulting provider notified?: Yes, Notify in am 10/06/19 08:39 Consult Physician Routine Consulting Provider: Argelia Espinoza Consult Reason/Comments: hyperkalemia, history of kidney transplant Do you want consulting provider notified?: Yes Primary care physician: [facility] Course: Discharge diagnosis -Shortness of breath, acute hypoxic respiratory failure: secondary to flareup of sarcoidosis which is again precipitated by recent viral upper respiratory infection. Continue systemic steroids blood sugars are expected to go high will treat with as needed sliding scale insulin. -Sinus tachycardia: Secondary to hypoxemia and the reflex tachycardia from holding off on metoprolol which will be resumed today. -Type 2 diabetes mellitus: Patient will be started on sliding scale insulin patient blood sugars are expected to be high patient blood sugars are presently uncontrolled and elevated secondary to systemic steroids. Metformin will be held -Possible diabetic nephropathy with the stage II chronic kidney disease -Interstitial lung disease from sarcoidosis -Mild hyperkalemia expected to improve with IV fluids repeat basic metabolic profile tomorrow -Hypertension -Hyperlipidemia DVT prophylaxis early ambulation Hospital course. 59-year-old pleasant female came in with comments of shortness of breath going on for couple days. Patient denied any fever chills patient does have dry cough. Patient does have history of sarcoidosis supposed to use oxygen but doesn't use it to only use it on as-needed basis. Patient is presently on 3 L, without rales and patient desaturated to 70% pulse ox. Patient the for last 34 days does have symptoms of body aches URI-like symptoms. Never had any fever. Patient had a CAT scan of the chest which is reviewed by me looks like patient has significant interstitial lung disease from sarcoidosis. Doesn't have any lobar infiltrate. Patient is in any fever patient the clinical symptomology is not consistent with pneumonia patient will not benefit from antibiotics Rocephin will be discontinued patient may not even need azithromycin. Patient is started was started on steroids which will be continued as patient is hypoxic and keep her here today if we're able to get down the oxygen to 2 L at less patient probably can be discharged at that time. Pulmonology was consulted. There is no evidence of heart failure patient doesn't have any orthopnea proximal nocturnal dyspnea, doesn't have any elevated JVD BNP is only 500 although echo c ardiac Be obtained. Patient appears to have some chronic kidney disease but will hydrate her for a day and recheck the creatinine, patient baseline creatinine appears to be around 1.2. Patient is feeling much better today compared to last 2 days PHYSICAL EXAMINATION: GENERAL: The patient is alert and oriented x3, not in any acute distress. Well developed, well nourished. HEENT: Pupils are round and equally reacting to light. EOMI. No scleral icterus. No conjunctival pallor. Normocephalic, atraumatic. No pharyngeal erythema. No thyromegaly. CARDIOVASCULAR: S1 and S2 present. No murmurs, rubs, or gallops. PULMONARY: Chest is clear to auscultation, no wheezing or crackles. ABDOMEN: Soft, nontender, nondistended, normoactive bowel sounds. No palpable organomegaly. MUSCULOSKELETAL: No joint swelling or deformity. EXTREMITIES: No cyanosis, clubbing, or pedal edema. NEUROLOGICAL: Gross neurological examination did not reveal any focal deficits. SKIN: No rashes. Discharge vitals reviewed. Patient Condition at Discharge: Fair Plan - Discharge Summary Discharge Rx Participant: No New Discharge Prescriptions: New predniSONE See Taper PO DIRECTED #30 tab Continue Bisacodyl [Dulcolax] 5 mg PO Q48H predniSONE 5 mg PO DAILY Spironolactone [Aldactone] 50 mg PO DAILY HYDROcodone/APAP 5-325MG [[place] 5-325] 1 tab PO Q8H PRN PRN Reason: Pain Ergocalciferol [Vitamin D2 (DRISDOL)] 50,000 unit PO TU Metoprolol Succinate [Toprol XL] 25 mg PO DAILY Cyclosporine, Modified [Gengraf] 100 mg PO Q12H metFORMIN HCL [Glucophage] 500 mg PO BID Mycophenolate Mofetil [Cellcept] 1,000 mg PO BID Docusate [Colace] 100 mg PO DAILY Aspirin EC [Ecotrin Low Dose] 81 mg PO DAILY Allopurinol [Zyloprim] 200 mg PO DAILY Discharge Medication List Bisacodyl [Dulcolax] 5 mg PO Q48H 10/04/19 [History] Ergocalciferol [Vitamin D2 (DRISDOL)] 50,000 unit PO TU 10/04/19 [History] HYDROcodone/APAP 5-325MG [[place] 5-325] 1 tab PO Q8H PRN 10/04/19 [History] Spironolactone [Aldactone] 50 mg PO DAILY 10/04/19 [History] predniSONE 5 mg PO DAILY 10/04/19 [History] Allopurinol [Zyloprim] 200 mg PO DAILY 10/05/19 [History] Aspirin EC [Ecotrin Low Dose] 81 mg PO DAILY 10/05/19 [History] Cyclosporine, Modified [Gengraf] 100 mg PO Q12H 10/05/19 [History] Docusate [Colace] 100 mg PO DAILY 10/05/19 [History] Metoprolol Succinate [Toprol XL] 25 mg PO DAILY 10/05/19 [History] Mycophenolate Mofetil [Cellcept] 1,000 mg PO BID 10/05/19 [History] metFORMIN HCL [Glucophage] 500 mg PO BID 10/05/19 [History] predniSONE See Taper PO DIRECTED #30 tab 10/07/19 [Rx] Follow up Appointment(s)/Referral(s): Argelia Espinoza MD [STAFF PHYSICIAN] - 1 Week (pt has appt next week) [facility], [NON-STAFF] - 1-2 Days Yuni Muller MD [Primary Care Provider] - 10/13/19 9:30 am Noel Aden MD [STAFF PHYSICIAN] - 1 Week (office will be in touch with patient to confirm location of follow up appt) Patient Instructions/Handouts: Pneumonia (DC) Discharge Disposition: HOME WITH HOME HEALTH SERVICES
== END 2019-10-06 18:03 | disposition home health service (06) | DRG 196 ==
LOC: EC 18:55 → 4SSUR 23:08
PROVIDERS: ADMIT Hospitalist; ATTEND Hospitalist
DX: D86.9 Sarcoidosis, unspecified (principal); J96.01 Acute respiratory failure with hypoxia; J84.9 Interstitial pulmonary disease, unspecified; N17.9 Acute kidney failure, unspecified; Z94.0 Kidney transplant status; E11.22 Type 2 diabetes mellitus with diabetic chronic kidney disease; E11.65 Type 2 diabetes mellitus with hyperglycemia; E87.5 Hyperkalemia; E78.5 Hyperlipidemia, unspecified; G47.33 Obstructive sleep apnea (adult) (pediatric); I12.9 Hypertensive chronic kidney disease with stage 1 through stage 4 chronic kidney disease, or unspecified chronic kidney disease; N18.2 Chronic kidney disease, stage 2 (mild); J98.01 Acute bronchospasm; E83.89 Other disorders of mineral metabolism; T38.0X5A Adverse effect of glucocorticoids and synthetic analogues, initial encounter; T50.2X5A Adverse effect of carbonic-anhydrase inhibitors, benzothiadiazides and other diuretics, initial encounter; Z79.52 Long term (current) use of systemic steroids; Z79.82 Long term (current) use of aspirin; Z79.84 Long term (current) use of oral hypoglycemic drugs; Z79.899 Other long term (current) drug therapy; Z87.891 Personal history of nicotine dependence; Z82.49 Family history of ischemic heart disease and other diseases of the circulatory system; Z82.61 Family history of arthritis
CPT/HCPCS: 36415; 71046; 71275; 80048; 80053; 82550; 83735; 83880; 84484; 85025; 85379; 85610; 85730; 87040; 87502; 93005; 93306; 94640; 96361; 96365; 96375; 99285

== ENCOUNTER → 2019-10-10 | Outpatient (CLI) | payer OTHER ==
[2019-10-10 07:59] LABS: Basophils % (A) 0 %; Eosinophils % (A) 0 %; HCT 47.6 % (34.0-46.0); HGB 14.3 gm/dL (11.4-16.0); Hypochromasia Marked; Lymphocytes # (A) 1.3 k/uL (1.0-4.8); Lymphocytes % (A) 12 %; MCH 26.3 pg (25.0-35.0); MCHC 30.1 g/dL (31.0-37.0); MCV 87.3 fL (80.0-100.0); Mean Platelet Volume 7.5; Monocytes # (A) 0.5 k/uL (0-1.0); Monocytes % (A) 4 %; Neutrophils # (A) 9.2 k/uL (1.3-7.7); Neutrophils % (A) 83 %; Platelet Count 416 k/uL (150-450); RBC 5.45 m/uL (3.80-5.40); WBC 11.1 k/uL (3.8-10.6)
[2019-10-10 08:03] LABS: Appearance,Urine Clear (Clear); Bilirubin,Urine Negative (Negative); Blood,Urine Trace (Negative); Color,Urine Yellow; Glucose,Urine (UA) Trace (Negative); Ketones,Urine Negative (Negative); Leukocyte Esterase,Urine Negative (Negative); Mucus,Urine Rare /hpf; Nitrite,Urine Negative (Negative); Protein,Urine Negative (Negative); RBC,Urine 2 /hpf (0-5); Specific Gravity,Urine 1.018 (1.001-1.035); Squamous Epithelial Cell,Urine 7 /hpf (0-4); Urobilinogen,Urine <2.0 mg/dL (<2.0); WBC,Urine 2 /hpf (0-5)
[2019-10-10 12:51] LABS: Creatinine,Urine Random 77.8 mg/dL
[2019-10-10 13:00] LABS: % Iron Saturation 27.38 (12.00-45.00); African American GFR (CKD) 57.7 (60.0-200.0); Anion Gap 8.9 mmol/L (4.00-12.00); BUN/Creat Ratio 30.83 Ratio (12.00-20.00); Carbon Dioxide 28.1 mmol/L (21.6-31.8); Magnesium 1.9 mg/dL (1.5-2.4); Non-African American GFR(CKD) 49.8 (60.0-200.0); Phosphorus 3.2 mg/dL (2.4-5.1); Potassium 5.1 mmol/L (3.5-5.5)
[2019-10-10 13:38] LABS: Total Protein,Urine Random 14.6 mg/dL (0.0-13.5)
[2019-10-10 13:51] LABS: Uric Acid 6.3 mg/dL (2.9-7.7)
== END | disposition home or self-care (01) ==
LOC: LABWHC1 07:11
PROVIDERS: ATTEND Internal Medicine Nephrology
DX: M10.9 Gout, unspecified (principal); E55.9 Vitamin D deficiency, unspecified; N25.81 Secondary hyperparathyroidism of renal origin; N39.0 Urinary tract infection, site not specified; D64.9 Anemia, unspecified; R80.9 Proteinuria, unspecified; Z94.0 Kidney transplant status
CPT/HCPCS: 36415; 80048; 80158; 81001; 82040; 82306; 82570; 82728; 83540; 83550; 83735; 83970; 84100; 84156; 84550; 85025

== ENCOUNTER → 2019-10-28 | Outpatient (CLI) | payer OTHER | END | disposition home or self-care (01) | LOC: LABWHC1 08:08 | PROVIDERS: ATTEND Internal Medicine Nephrology | DX: Z48.22 Encounter for aftercare following kidney transplant (principal); Z94.0 Kidney transplant status | CPT/HCPCS: 36415; 80158 ==

== ENCOUNTER → 2021-01-14 | Day surgery (SDC) | payer OTHER ==
[2021-01-10 10:41] VITALS: BMI 37.8
[~2021-01-14] MED LIST: LACTATED RINGERS 1,000 ML IV SCH; LIDOCAINE 1% (10MG/ML) FOR IV START INTRADERMA PRN
--- NOTE | 2021-01-14 08:31 | P.GSHP ---
History of Present Illness H&P Date: 01/14/21 Chief Complaint: Positive fit Patient here today after having a positive fit test. Patient sees no blood in her stool grossly. No abdominal pain. Family history of polyps. No family history of colon cancer. No change in bowel habits. Past Medical History Past Medical History: Diabetes Mellitus, Hyperlipidemia, Hypertension, Osteoarthritis (OA), Pneumonia, Renal Disease, Sleep Apnea/CPAP/BIPAP Additional Past Medical History / Comment(s): sarcodosis, states unable to use c-pap -uses Oxygen at 3L at HS., Right kidney transplant (2010), arthritis knees., Cataract surgery left eye 01/08/21 History of Any Multi-Drug Resistant Organisms: None Reported Additional Past Surgical History / Comment(s): kidney transplant ([facility] 2010),abd surgery after infection in abd from peritoneal dialysis, cataract right eye , left cataract 01/08/21. Past Anesthesia/Blood Transfusion Reactions: No Reported Reaction Past Psychological History: Anxiety Smoking Status: Former smoker Past Alcohol Use History: None Reported Additional Past Alcohol Use History / Comment(s): quit smoking approx 9 years ago (2011), smoked occasionally since teens. Past Drug Use History: None Reported - Past Family History Brother(s) Family Medical History: Cancer Additional Family Medical History / Comment(s): colon cancer Medications and Allergies Home Medications Medication Instructions Recorded Confirmed Type Ergocalciferol [Vitamin D2 50,000 unit PO WEEKLY 10/04/19 01/10/21 History (DRISDOL)] predniSONE 5 mg PO DAILY 10/04/19 01/10/21 History Aspirin EC [Ecotrin Low Dose] 81 mg PO DAILY 10/05/19 01/10/21 History Cyclosporine, Modified [Gengraf] 100 mg PO QAM 10/05/19 01/10/21 History Atorvastatin Calcium [Lipitor] 20 mg PO DAILY 01/10/21 01/10/21 History Cyclosporine, Modified [Gengraf] 50 mg PO HS 01/10/21 01/10/21 History Ergocalciferol (Vitamin D2) 1,250 mcg PO WEEKLY 01/10/21 01/10/21 History [Drisdol (50,000 Iu)] Ferrous Sulfate (Unknown Dose) 1 tab PO DAILY 01/10/21 History Glimepiride [Amaryl] 1 mg PO [id number] 01/10/21 01/10/21 History HYDROcodone/APAP 5-325MG [[place] 1 tab PO DIRECTED PRN 01/10/21 01/10/21 History 5-325] Melatonin 2.5 mg PO HS PRN 01/10/21 01/10/21 History Metoprolol Tartrate [Lopressor] 25 mg PO Q48H 01/10/21 01/10/21 History Mycophenolate Sodium [Mycophenolic 720 mg PO BID 01/10/21 01/10/21 History Acid] Sertraline [Zoloft] 100 mg PO DAILY 01/10/21 01/10/21 History Allergies Allergy/AdvReac Type Severity Reaction Status Date / Time No Known Allergies Allergy Verified 01/10/21 10:00 Surgical - Exam Physical exam: General: Well-developed, well-nourished HEENT: Normocephalic, sclerae nonicteric Abdomen: Nontender, nondistended Extremities: No edema Neuro: Alert and oriented Assessment and Plan (1) Positive FIT (fecal immunochemical test) Narrative/Plan: Will proceed with colonoscopy Current Visit: Yes Status: Acute Code(s): R19.5 - OTHER FECAL ABNORMALITIES SNOMED Code(s): 62677379
== END ==
LOC: ORWHC2ENDO 08:14
PROVIDERS: ATTEND Surgery
DX: D50.9 Iron deficiency anemia, unspecified (principal); Z53.9 Procedure and treatment not carried out, unspecified reason